=== PATIENT | male | born 1950 | race Two or more races ===

== ENCOUNTER → 2024-08-13 | Emergency (ER) | payer OTHER ==
[~2024-08-13] MED LIST: BRILINTA90 MG; LANTUS SOL100 UNIT/1
== END | disposition left against medical advice (07) ==
LOC: ER 09:21
DX: Z53.21 Procedure and treatment not carried out due to patient leaving prior to being seen by health care provider (principal)

== ENCOUNTER 2024-09-21 20:12 | Emergency (ER) | payer OTHER ==
[~2024-09-21] VITALS: Ht 165.1 cm; Wt 67.1 kg
[2024-09-21] MEDS ORDERED: BRILINTA90 MG (21:07)
[2024-09-21] MEDS ORDERED: LANTUS SOL100 UNIT/1 (21:07)
[2024-09-22] MEDS ORDERED: KETOROLAC TROMETHAMINE 60 MG VIAL IM STA (03:12)
[2024-09-22] MEDS ORDERED: TRAMADOL HCL 50 MG TABLET PO STA (03:12)
[2024-09-22] MEDS ORDERED: KETOROLAC TROMETHAMINE 60 MG VIAL IM ONE (03:46)
== END 2024-09-22 04:24 | disposition home or self-care (01) ==
LOC: ER 20:12
DX: S49.81XA Other specified injuries of right shoulder and upper arm, initial encounter (principal); S42.301A Unspecified fracture of shaft of humerus, right arm, initial encounter for closed fracture; S40.011A Contusion of right shoulder, initial encounter; W19.XXXA Unspecified fall, initial encounter; Y93.89 Activity, other specified; Y92.89 Other specified places as the place of occurrence of the external cause; Y99.8 Other external cause status